=== PATIENT | female | born 1955 | race Caucasian/White ===

== ENCOUNTER 2023-01-06 08:27 | Day surgery (SDC) | payer OTHER ==
[~2023-01-06 08:27] MED LIST: CRESTOR10 MG PO; DIOVAN160 MG PO; MAXZIDE-25MG1 COMBO PO; METFORMIN500 M2 PO; MOUNJARO5 MG SC
[2023-01-06 10:47] VITALS: BP 128/71
== END 2023-01-06 11:10 | disposition home or self-care (01) | DRG 395 ==
LOC: ENDO 08:27 → ORM 09:15 → ENDO 10:05
PROVIDERS: ATTEND Internal Medicine Gastroenterology
PROC: 0DBM8ZX Excision of Descending Colon, Via Natural or Artificial Opening Endoscopic, Diagnostic (ICD-10-PCS; principal; 2023-01-06)
PROC: 0DBL8ZX Excision of Transverse Colon, Via Natural or Artificial Opening Endoscopic, Diagnostic (ICD-10-PCS; 2023-01-06)
PROC: 0DBN8ZX Excision of Sigmoid Colon, Via Natural or Artificial Opening Endoscopic, Diagnostic (ICD-10-PCS; 2023-01-06)
DX: D12.4 Benign neoplasm of descending colon (principal); D12.5 Benign neoplasm of sigmoid colon; D12.3 Benign neoplasm of transverse colon; K64.8 Other hemorrhoids; I10 Essential (primary) hypertension